=== PATIENT | female | born 1975 | race Caucasian/White ===

== ENCOUNTER 2017-02-21 00:31 | Emergency (ER) | payer BC | END 2017-02-21 04:08 | disposition home or self-care (01) | LOC: ER1 00:31 | DX: N13.2 Hydronephrosis with renal and ureteral calculous obstruction (principal) | CPT/HCPCS: 36415; 81001; 84703; 96361; 96374; 96375; 99284; J1885; J2270; J2405 ==

== ENCOUNTER 2017-02-24 09:42 | Emergency (ER) | payer BC ==
[2017-02-24 11:09] LABS: HEMOGLOBIN 14.7 gm/dl (12.3-15.3); RED BLOOD COUNT 4.78 M/UL (4.00-5.10); WHITE BLOOD COUNT 8.5 K/UL (4.5-11.0)
[2017-02-24 11:38] LABS: BUN/CREATININE RATIO 14 (0-10)
== END 2017-02-24 18:25 ==
LOC: ER1 09:42
PROVIDERS: Physician Assistant
DX: N20.2 Calculus of kidney with calculus of ureter (principal)
CPT/HCPCS: 36415; 80053; 81001; 83690; 84703; 85025; 96361; 96374; 96375; 96376; 99284; J1885; J2270; J2405

== ENCOUNTER 2022-03-12 14:29 | Emergency (ER) | payer BC ==
[2022-03-12 16:46] LABS: HEMOGLOBIN 16.4 gm/dl (12.3-15.3); RED BLOOD COUNT 5.25 M/UL (4.00-5.10); WHITE BLOOD COUNT 10.8 K/UL (4.5-11.0)
[2022-03-12 17:08] LABS: BUN/CREATININE RATIO 23 (0-10)
[2022-03-12] MEDS ORDERED: GLUCOPHAGE 500500 MG PO (21:11)
== END 2022-03-12 22:00 | disposition home or self-care (01) ==
LOC: ER1 14:29
PROVIDERS: Emergency Medicine
DX: E11.9 Type 2 diabetes mellitus without complications (principal)
CPT/HCPCS: 80053; 81001; 83036; 84703; 85025; 99283